=== PATIENT | male | born 1955 | race Caucasian/White ===

== ENCOUNTER 2018-04-02 02:57 | Inpatient (IN) | payer MEDICARE, MEDICAID ==
[~2018-04-02 02:57] MED LIST: D5-0.9%NS 1,000 ML IV SCH
--- NOTE | 2018-04-02 03:17 | ED Physician Chart ---
ED Chief Complaint/HPI - Patient Information Date Seen:: 04/02/18 Time Seen:: 03:16 Chief Complaint:: VOMITING BLOOD History of Present Illness:: THIS IS A 62 YO SEVERE CP WHO IS CHRONICALLY ILL WITH HEART DISEASE,DIABETES AND QUADRAPLEGIC WITH SEVERE MUSCLE WASTING SENT FROM THE NURSING FOR AN EVALUATION AND TREATMENT FOR BLOODY VOMITING SIX TIMES OVER THE LAST 24 HRS. Allergies:: Allergies Allergy/AdvReac Type Severity Reaction Status Date / Time MDX Apricot [Apricot] Allergy Verified 10/03/13 18:18 MDX Bioflavonoid Allergy Verified 10/03/13 18:18 [Bioflavonoid] MDX Blackberry [Blackberry] Allergy Verified 10/03/13 18:18 MDX Broccoli [Broccoli] Allergy Verified 10/03/13 18:18 MDX Alford [Alford] Allergy Verified 10/03/13 18:18 MDX Wharton [Wharton] Allergy Verified 10/03/13 18:18 MDX Grape [Grape] Allergy Verified 10/03/13 18:18 cantaloupe Allergy Uncoded 10/03/13 18:18 currants Allergy Uncoded 10/03/13 18:18 Vitals:: Vital Signs - 8 hr 04/02/18 03:03 Temp 97.0 F HR 115 RR 16 BP 97/73 O2 Sat % 98 Historian:: Medical Records Review:: Nurse's Note Reviewed, Old Chart Reviewed, Transfer documents Reviewed ED Review of Systems - Review of Systems Skin: Other (THIS PATIENT CANNOT GIVE A REVIEW OF SYSTEMS.) ED Past Medical History - Past Medical History Obtainable: Yes Past Medical History: DM, CAD, CHF, CVA/TIA, Dementia Family History: None Social History: Non Smoker, No Alcohol, No Drug Use, Single, Care Facility Surgical History: None Psychiatricy History: Dementia Medication: Reviewed Family Medical History - Family Member Mother History Unknown: Yes ED Physical Exam - Physical Examination General/Constitutional: Awake, Well-developed, well-nourished, Alert, No distress, GCS 15, Non-toxic appearing, Ambulatory Other Gen/Cons comments:: THIS IS A LETHARGIC CACHECTIC, 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 Head: Atraumatic Eyes: Lids, conjuctiva normal, PERRL, EOMI Skin: Nl inspection, No rash, No skin lesions, No ecchymosis, Well hydrated, No lymphadenopathy ENMT: External ears, nose nl, Nasal exam nl, Lips, teeth, gums nl Neck: Nontender, Full ROM w/o pain, No JVD, No nuchal rigidity, No bruit, No mass, No stridor Respiratory: Nl effort/Exclusion, Clear to Auscultation, No Wheeze/Rhonchi/Rales Cardio Vascular: RRR, No murmur, gallop, rubs, NL S1 S2 GI: No tenderness/rebounding/guarding, No organomegaly, No hernia, Normal BS's, Nondistended, No mass/bruits, No McBurney tenderness : No CVA tenderness Extremities: No tenderness or effusion, Full ROM, normal strength in all extremities, No edema, Normal digits & nails Neuro/Psych: Alert/oriented, DTR's symmetric, Normal sensory exam, Normal motor strength, Judgement/insight normal (THE PATIENT HAS PERFOUND INTELLECTUAL DISABILITY.), Mood normal, Normal gait Other Neuro/Psych comments:: THE PATIENT HAS SEVERE 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 Misc: Normal back, No paraspinal tenderness ED Labs/Radiology/EKG Results - Lab Results Results: Abnormal Lab Results 04/02/18 04/02/18 04/02/18 03:58 03:58 03:58 WBC 18.8 H RBC 3.97 L Hgb 11.8 L Hct 35.2 L MCV 88.6 MCH 29.6 MCHC Differential 33.5 RDW 13.9 Plt Count 279 MPV 8.1 Add Manual Diff YES Band Neutrophils % 0 Neutrophils (Manual) 90 H Lymphocytes 7 L Monocytes 3 Sodium 138 Potassium 4.6 Chloride 97 L Carbon Dioxide 32.5 H Anion Gap 13.1 BUN 28 H Creatinine 1.1 Est GFR ( Amer) > 60.0 Est GFR (Non-Af Amer) > 60.0 BUN/Creatinine Ratio 25.5 Glucose 171 H Whole Bld Lactic Acid Calcium 9.7 Total Bilirubin 0.3 AST 17 ALT 16 Alkaline Phosphatase 82 Troponin I 0.02 Total Protein 7.6 Albumin 3.7 L Globulin 3.9 Albumin/Globulin Ratio 1.0 04/02/18 03:58 WBC RBC Hgb Hct MCV MCH MCHC Differential RDW Plt Count MPV Add Manual Diff Band Neutrophils % Neutrophils (Manual) Lymphocytes Monocytes Sodium Potassium Chloride Carbon Dioxide Anion Gap BUN Creatinine Est GFR ( Amer) Est GFR (Non-Af Amer) BUN/Creatinine Ratio Glucose Whole Bld Lactic Acid 2.43 H* Calcium Total Bilirubin AST ALT Alkaline Phosphatase Troponin I Total Protein Albumin Globulin Albumin/Globulin Ratio - EKG Interpretations EKG Time:: 04:37 Rate & Rhythm: RLCE=241, SINUS TACH [place]: LEFT AXIS ED Assessment - Assessment General Assessment: UPPER GI BLEEDING SEPSIS ED Septic Shock - . Is Septic Shock (SBP<90, OR Lactate>4 mmol\L) present?: No - <6hrs of presentation: Vital Signs: Vital Signs - 8 hr 04/02/18 03:03 Temp 97.0 F HR 115 RR 16 BP 97/73 O2 Sat % 98 ED Reassessment (Disposition) - Reassessment Reassessment Condition:: Improved - Diagnosis Diagnosis:: SEPSIS UPPER GI BLEEDING PHIL DELANGE SYNDROME - Patient Disposition Discharge/Transfer:: Acute Care w/in this hosp Accepting Physician:: THIS PATIENT WILL BE CARED FOR BY DR. CRAFT STARTING AT 0700. Admitting Medical Physician:: Sheri Chance Condition at Disposition:: Improved
[2018-04-02 03:43] VITALS: BP 128/67
[2018-04-02] MEDS ORDERED: Sodium Chloride 0.9% 1,000 ML IV ONE ×2 (03:54→06:48)
[2018-04-02 04:21] LABS: HEMATOCRIT 35.2 % (41.0-60); HEMOGLOBIN 11.8 gm/dL (12-16); MEAN CELL VOLUME 88.6 fl (80-99); MEAN CORPUSCULAR HEMOGLOBIN 29.6 pg (26.0-30.0); MEAN CORPUSCULAR HGB CONC 33.5 pg (28.0-36.0); MEAN PLATELET VOLUME 8.1 fl; PLATELET COUNT 279 Th/cmm (150-400); RED BLOOD COUNT 3.97 Mil/cmm (4.30-5.70); RED CELL DISTRIBUTION WIDTH 13.9 % (11.5-20.0)
[2018-04-02 04:24] LABS: WHITE BLOOD COUNT 18.8 Th/cmm (4.8-10.8)
[2018-04-02 04:32] LABS: ALBUMIN 3.7 gm/dL (4.2-5.5); ALKALINE PHOSPHATASE 82 U/L (34-104); ANION GAP 13.1 (7.0-16.0); BILIRUBIN,TOTAL 0.3 mg/dL (0.3-1.0); BUN - UREA NITROGEN 28 mg/dL (7-25); CALCIUM SERUM 9.7 mg/dL (8.6-10.3); CARBON DIOXIDE 32.5 mEq/L (21.0-31.0); CHLORIDE 97 mEq/L (98-107); CREATININE - SERUM 1.1 mg/dL (0.7-1.3); GFR AFRICAN-AMERICAN > 60.0 ml/min (>90); GFR NON AFRICAN-AMERICAN > 60.0 ml/min; GLUCOSE 171 mg/dL (70-105); POTASSIUM SERUM 4.6 mEq/L (3.5-5.1); SGOT 17 U/L (13-39); SGPT/ALT 16 U/L (7-52); SODIUM SERUM 138 mEq/L (136-145); TOTAL PROTEIN,SERUM 7.6 gm/dL (6.0-8.3)
[2018-04-02 05:03] LABS: BAND NEUTROPHILE 0 % (0-10); LYMPHOCYTE 7 % (20-50); MONOCYTE 3 % (2-10); NEUTROPHILS 90 % (40-80)
[2018-04-02] MEDS ORDERED: Pantoprazole 80 MG in Sodium Chloride 0.9% 100 ML IV ONE (07:37)
[2018-04-02] MEDS ORDERED: Pantoprazole 80 MG in Sodium Chloride 0.9% 100 ML IV SCH (07:45)
[2018-04-02 08:26] LABS: URINE SOURCE CLEAN C
[2018-04-02 08:29] LABS: URINE BILIRUBIN NEGATIVE (NEGATIVE); URINE BLOOD NEGATIVE (NEGATIVE); URINE GLUCOSE (UA) NEGATIVE (NEGATIVE); URINE KETONE NEGATIVE (NEGATIVE); URINE LEUKOCYTE ESTERASE SMALL (NEGATIVE); URINE MICROSCOPIC INDICATED? YES; URINE NITRATE NEGATIVE (NEGATIVE); URINE PROTEIN TRACE mg/dL (NEGATIVE); URINE UROBILINOGEN 0.2 E.U./dL (0.2 - 1.0)
[2018-04-02 08:36] LABS: URINE CLARITY TURBID (CLEAR); URINE COLOR YELLOW
[2018-04-02 08:37] LABS: URINE RBC NONE SEEN /hpf (0-5)
[2018-04-02 08:46] LABS: URINE BACTERIA FEW /hpf (NONE SEEN); URINE EPITHELIAL CELLS FEW /lpf (FEW)
[2018-04-02 09:11] LABS: % EOSINOPHILS 0.7 % (0.0-5.0); % LYMPHOCYTES 11.6 % (20.0-50.0); % MONOCYTES 4.7 % (2.0-10.0); BASOPHILE ABSOLUTE 0.2 Th/cumm (0-0.2); EOSINOPHILE ABSOLUTE 0.1 Th/cmm (0.1-0.4); HEMATOCRIT 34.2 % (41.0-60); HEMOGLOBIN 10.9 gm/dL (12-16); LYMPHOCYTE ABSOLUTE 1.8 Th/cmm (1.5-3.0); MEAN CELL VOLUME 88.7 fl (80-99); MEAN CORPUSCULAR HEMOGLOBIN 28.3 pg (26.0-30.0); MEAN CORPUSCULAR HGB CONC 31.9 pg (28.0-36.0); MEAN PLATELET VOLUME 8.8 fl; MONOCYTE ABSOLUTE 0.7 Th/cmm (0.3-1.0); NEUTROPHILE ABSOLUTE 13.1 Th/cmm (1.8-8.0); PLATELET COUNT 235 Th/cmm (150-400); RED BLOOD COUNT 3.86 Mil/cmm (4.30-5.70)
[2018-04-02 09:15] LABS: WHITE BLOOD COUNT 15.9 Th/cmm (4.8-10.8)
--- NOTE | 2018-04-02 09:32 | Diagnostic Imaging Report ---
CHEST X-RAY: AP view INDICATION: Shortness of breath COMPARISON: Chest x-ray 10/09/2013 FINDINGS: Increased interstitial lung markings are noted. No focal consolidation or effusions. Low lung volumes are noted limiting the exam. Cardiomegaly suspected. Left basal density is noted. Degenerative changes spine are noted with scoliosis. IMPRESSION: Increased interstitial lung markings which may be chronic, however, mild congestion cannot be excluded please correlate with clinical findings. Left basal density which may be due to superimposition of soft tissues, however, atelectasis or infiltrate cannot be excluded. Follow-up recommended.
[2018-04-02] MEDS ORDERED: Sodium Chloride 0.9% 1,000 ML IV SCH ×2 (09:45→15:00)
[2018-04-02] MEDS ORDERED: D5-0.45NS 1,000 ML IV SCH (09:54)
[2018-04-02 11:09] LABS: PROTHROMBIN TIME (TEST) 10.1 SECONDS (9.5-11.5)
[2018-04-02] MEDS ORDERED: VTE Chemical Prophylaxis Screen/Admission MC PRN (15:13)
--- NOTE | 2018-04-02 18:31 | History & Physical ---
ADMIT DATE: 04/02/2018 CHIEF COMPLAINT: The patient came in because of hematemesis. HISTORY OF PRESENT ILLNESS: This is a 62-year-old male with past medical history of congenital anomaly (Beryl de Mcclendon syndrome) who was brought in because of hematemesis. A few hours prior to admission, the patient had several episodes of hematemesis. He was subsequently brought to the Emergency Room. His hemoglobin/hematocrit were 11.8/35.2 upon arrival at the ER. He had no further nausea and vomiting since then. Repeat hemoglobin/hematocrit this morning were 10.9/34.2. Stool for occult blood was negative. However, his white count was 18. He had no episodes of diarrhea. PAST MEDICAL HISTORY: 1. Congenital abnormality (Elana de Mcclendon syndrome). 2. Anemia of chronic disease. 3. Type 2 diabetes mellitus. 4. Cardiomegaly. 5. Profound intellectual disability. 6. Essential hypertension. 7. Dyslipidemia. 8. Colonic volvulus. 9. Dysphagia. PAST SURGICAL HISTORY: Status post bowel resection in 1995. CURRENT MEDICATIONS: Currently on ceftriaxone, lorazepam and pantoprazole. ALLERGIES: No known drug allergies. SOCIAL AND FAMILY HISTORY: I was not able to obtain directly from the patient because he remains nonverbal. REVIEW OF SYSTEMS: Again, I was not able to decipher directly from the patient because of the same reason. PHYSICAL EXAMINATION: GENERAL: The patient is awake, not in any form of distress, withdrawn. VITAL SIGNS: His blood pressure is 98/48, pulse 86 and temperature is 97.7 degrees. SKIN: Poor turgor, warm, no rash, no jaundice appreciated. HEENT: Head normocephalic, atraumatic. Eyes: Extraocular muscles intact. Pupils equal, round, reactive to light and accommodates. Anicteric sclerae. [place] conjunctivae. Nose: Midline nasal septum. Mouth: Dry mucosa, adequate dentition. NECK: Supple, no adenopathy, no thyromegaly, no bruits. Trachea palpated in the midline. CHEST AND CARDIOVASCULAR: S1 and S2. No rub, murmur nor gallop appreciated. Point of maximal impulse. Fifth intercostal space, left midclavicular line. No abdominal or femoral bruits appreciated. LUNGS: Equal expansion. No use of accessory muscles. No supraclavicular retractions. Decreased breath sounds. No rhonchi nor wheezes appreciated. ABDOMEN: Flat, soft, positive for bowel sounds.. No bruits either diastolic or systolic. RECTAL: Unable to perform due to his current position. GENITOURINARY: Normal appearing male genitalia. MUSCULOSKELETAL: Unable to assess his extraocular muscles because of his severe contractures. EXTREMITIES: Again, I was not able to assess his extremities, but there is no evidence of any edema, cyanosis or clubbing. He has severe upper and lower extremity contractures. He has a palpable femoral, but unable to fully appreciate popliteal and dorsalis pedis pulses due to his contractures. NEUROLOGIC: Again, due to his congenital anomaly with depressed mentation, I was not able to pursue further my neuro exam. LABORATORY DATA AND STUDIES: Did reveal white count 15.9, hemoglobin 10.9, hematocrit 34.2 and platelets 235. Sodium 138, potassium 4.6, chloride 97, CO2 of 32, BUN 28, creatinine 1.1, lactic acid 1.28, calcium 9.7 and albumin 3.7. IMPRESSION: 1. Upper gastrointestinal bleed in the form of hematemesis, possible esophagitis, erosive gastritis, diuresis, peptic ulcer disease. 2. Leukocytosis with elevated lactic acid, possibly underlying sepsis, etiology unknown at the present time with the possibility of left lower lobe healthcare-acquired pneumonia; however, leukemoid reaction should also be considered. 3. Prerenal azotemia. 4. Congenital anomaly (Beryl de Mcclendon syndrome). 5. Anemia of chronic disease. 6. Type 2 diabetes mellitus. 7. Essential hypertension. 8. Cardiomegaly. 9. Profound intellectual disability. 10. Dyslipidemia. 11. Colonic volvulus, status post bowel resection. 12. Dysphagia. PLAN: 1. GI consult. 2. Agree with clear liquid diet. 3. Type and screen. 4. [place] culture. 5. Continue with PPI. 6. Continue with Rocephin. I have discussed the patient's condition and management with mother, Flora. JOB# [id number]
[2018-04-03 07:12] LABS: % BASOPHILS 1.8 % (0.0-2.0); % EOSINOPHILS 7.9 % (0.0-5.0); % LYMPHOCYTES 25.2 % (20.0-50.0); % MONOCYTES 5.5 % (2.0-10.0); % NEUTROPHILS 59.6 % (40.0-80.0); BASOPHILE ABSOLUTE 0.1 Th/cumm (0-0.2); EOSINOPHILE ABSOLUTE 0.5 Th/cmm (0.1-0.4); HEMATOCRIT 30.8 % (41.0-60); HEMOGLOBIN 10.1 gm/dL (12-16); LYMPHOCYTE ABSOLUTE 1.6 Th/cmm (1.5-3.0); MEAN CORPUSCULAR HEMOGLOBIN 29.3 pg (26.0-30.0); MEAN CORPUSCULAR HGB CONC 32.9 pg (28.0-36.0); MONOCYTE ABSOLUTE 0.3 Th/cmm (0.3-1.0); NEUTROPHILE ABSOLUTE 3.7 Th/cmm (1.8-8.0); PLATELET COUNT 199 Th/cmm (150-400); RED BLOOD COUNT 3.45 Mil/cmm (4.30-5.70)
[2018-04-03 07:24] LABS: ALB/GLOB RATIO 1.1 (1.0-1.8); ALBUMIN 3.2 gm/dL (4.2-5.5); ALKALINE PHOSPHATASE 56 U/L (34-104); ANION GAP 9.5 (7.0-16.0); BILIRUBIN,TOTAL 0.3 mg/dL (0.3-1.0); BUN - UREA NITROGEN 15 mg/dL (7-25); CALCIUM SERUM 8.6 mg/dL (8.6-10.3); CARBON DIOXIDE 25.9 mEq/L (21.0-31.0); CHLORIDE 108 mEq/L (98-107); GFR AFRICAN-AMERICAN > 60.0 ml/min (>90); GFR NON AFRICAN-AMERICAN > 60.0 ml/min; GLUCOSE 137 mg/dL (70-105); MAGNESIUM 1.6 mg/dL (1.9-2.7); POTASSIUM SERUM 4.4 mEq/L (3.5-5.1); SGOT 14 U/L (13-39); SGPT/ALT 12 U/L (7-52); SODIUM SERUM 139 mEq/L (136-145); TOTAL PROTEIN,SERUM 6.2 gm/dL (6.0-8.3)
--- NOTE | 2018-04-03 07:43 | Consultation ---
DATE OF CONSULTATION: 04/02/2018 REASON FOR CONSULTATION: GI bleed. HISTORY OF PRESENT ILLNESS: This consult was obtained through the courtesy of Dr. Chance for this 62-year-old who is mentally challenged, who was transferred from a nursing facility for 6 episodes of coffee-ground emesis according to the detention and the family, the patient is on pureed diet, but he started to vomit yesterday. Since the patient has been here, there were no more episodes of vomiting, but he has been n.p.o. since then. PAST MEDICAL HISTORY: Mentally challenged. PAST SURGICAL HISTORY: Abdominal surgery for volvulus. SOCIAL HISTORY: The patient is a nonsmoker and nonalcoholic, IV drug abuser. FAMILY HISTORY: Unobtainable, noncontributory. ALLERGIES: APRICOT, BLACKBERRY, BROCCOLI, GROVER, CITRUS AND ____ DERIVATIVES. MEDICATIONS: The patient started on Rocephin, Pepcid, lorazepam, Zofran, Protonix. REVIEW OF SYSTEMS: Unobtainable. PHYSICAL EXAMINATION: GENERAL: The patient is awake, nonverbal, nonresponsive. VITAL SIGNS: Blood pressure was 114/51, heart rate 72, respiratory rate 18, temperature is 97.3. HEAD AND NECK: Pupils reactive to light. Extraocular muscles could not be tested. Oral cavity, no lesion. NECK: Supple. CHEST: Good air entry. LUNGS: Clear to auscultation. CARDIOVASCULAR: Regular rate and rhythm. No murmur or gallop. ABDOMEN: Soft with scar previous surgery. Bowel sounds are present. Abdomen was not tender. EXTREMITIES: Lower extremities, no edema. CENTRAL NERVOUS SYSTEM: Other than the disability, the patient is able to move extremities. LABORATORY DATA: Hemoglobin 10.9, hematocrit 34.2. White count 15.9. PT is 10. Chemistry showed lactic acid of 2.43, dropped after admissions and fluid to 1.28. The patient had a chest x-ray, which showed interstitial lung markings, some left basal density. IMPRESSION: A 62-year-old mentally challenged, status post surgery for volvulus, now presenting with coffee-ground emesis. ASSESSMENT AND PLAN: 1. Coffee-ground emesis could be peptic ulcer disease, could be upper GI malignancy, could be erosive esophagitis. RECOMMENDATIONS: 1. PPI. 2. Monitor H and H. 3. Transfuse as needed. 4. EGD in the morning. 5. Further recommendations to follow. 2. Lactic acidosis could be signs of infection. This is per PCP. 3. Other medical problems such as mental challenged as per Dr. Chance. Thank you, Dr. Chance for allowing us to participate in the care of the patient. If you have any further questions, please let me know. JOB# [id number]
[2018-04-03 08:36] LABS: WHITE BLOOD COUNT 6.2 Th/cmm (4.8-10.8)
[2018-04-03] MEDS ORDERED: Propofol 10 mg/mL 20mL Vial **SURGERY USE ONLY IV ONE (11:00)
[2018-04-03] MEDS ORDERED: Lidocaine 2% Gel 5 mL TP ONE (11:00)
[2018-04-03 11:09] LABS: IRON LC 56 ug/dL (38-169); TIBC (LC) 383 ug/dL (250-450); UIBC 327 ug/dL (111-343)
[2018-04-03] MEDS ORDERED: Magnesium Hydroxide (MOM) 30 mL UDC PO PRN (11:15)
[2018-04-03] MEDS: D5-0.9%NS 1,000 ML IV SCH ×2 (13:33)
--- NOTE | 2018-04-03 13:57 | Operative Report ---
DATE OF SURGERY: 04/03/2018 PREOPERATIVE DIAGNOSES: 1. Hematemesis. 2. History of congenital abnormality. 3. History of bowel resection in 1995. 4. Cardiomegaly and profound intellectual disability. POSTOPERATIVE DIAGNOSES: 1. Esophageal ulceration and esophagitis. 2. Mild gastritis. 3. Proximal esophageal stricture. INDICATION: This is a 62-year-old male with a history of congenital anomaly [place] de Mcclendon syndrome, who was brought in because of recurrent bouts of hematemesis from the nursing facility. The patient had hemoglobin that dropped down from 11.8 down to 10.9 and an upper endoscopy was chosen for further evaluation. CONSENT: Informed consent was obtained from the family after explaining the risks, benefits and alternatives to the procedure, which were understood and so stated. SEDATION: Per anesthesia. EGD: While the patient was in the left lateral decubitus position, a GIF-H180 scope was introduced through the patient's mouth and advanced under direct visualization into the esophagus into the stomach and up to the second portion of the duodenum. Here, the scope was withdrawn carefully examining the color, texture, anatomy, and the mucosa of the D1 and D2 portions appeared normal. There was some slight pyloric stenosis that was noted from the pylorus into the duodenal bulb, but the scope was able to pass in and out of this area without any issues. Retroflexion was performed from the gastric body and taking a look at the fundus, did not show any abnormalities. The scope was then straightened forward and looked at the gastric antrum, which had only mild gastritis. Biopsies were taken here to rule out H. pylori. The scope was then brought back to the diaphragmatic pinch which was at 31 cm from the incisors and the GE junction, which was present at 29 cm from the incisors. Just proximal to this, there was some esophageal ulceration, especially one large ulcer that was seen that likely was the cause of bleed. Biopsies were taken around this ulcer edge as well as in the center to rule out CMV or HSV. The scope was then drawn out and the patient tolerated this procedure well. The patient did have a slight narrowing of the proximal esophagus upon entrance of the scope; however, we chose not to dilate this area for patient safety. The scope was withdrawn. The patient tolerated this procedure well. RECOMMENDATIONS: 1. Recommend daily PPI twice a day for this patient. 2. Follow up biopsy results. 3. Monitor for any signs of recurrent hematemesis. 4. Okay to start on clear liquids today and advance as tolerated if patient is swallowing without any difficulties. Thank you for involving us in this patient's care. JOB# [id number]
[2018-04-03] MEDS ORDERED: PROTEIN POWDER PO SCH (14:00)
[2018-04-03] MEDS: Ferrous Sulfate 325 MG TAB PO SCH (16:20)
[2018-04-03 18:33] LABS: INR 1.09 (0.5-1.4)
[2018-04-04] MEDS: D5-0.9%NS 1,000 ML IV SCH ×2 (06:03→20:57)
[2018-04-04 06:37] LABS: % BASOPHILS 0.1 % (0.0-2.0); % EOSINOPHILS 5.9 % (0.0-5.0); % LYMPHOCYTES 16.1 % (20.0-50.0); % MONOCYTES 7.7 % (2.0-10.0); % NEUTROPHILS 70.2 % (40.0-80.0); EOSINOPHILE ABSOLUTE 0.5 Th/cmm (0.1-0.4); HEMATOCRIT 28.8 % (41.0-60); HEMOGLOBIN 9.8 gm/dL (12-16); LYMPHOCYTE ABSOLUTE 1.3 Th/cmm (1.5-3.0); MEAN CELL VOLUME 88.2 fl (80-99); MEAN CORPUSCULAR HEMOGLOBIN 29.8 pg (26.0-30.0); MEAN CORPUSCULAR HGB CONC 33.8 pg (28.0-36.0); MEAN PLATELET VOLUME 7.3 fl; MONOCYTE ABSOLUTE 0.6 Th/cmm (0.3-1.0); NEUTROPHILE ABSOLUTE 5.8 Th/cmm (1.8-8.0); PLATELET COUNT 220 Th/cmm (150-400); RED BLOOD COUNT 3.27 Mil/cmm (4.30-5.70); RED CELL DISTRIBUTION WIDTH 13.7 % (11.5-20.0); WHITE BLOOD COUNT 8.2 Th/cmm (4.8-10.8)
[2018-04-04 07:20] LABS: ALB/GLOB RATIO 1.1 (1.0-1.8); ALBUMIN 3.1 gm/dL (4.2-5.5); ALKALINE PHOSPHATASE 55 U/L (34-104); ANION GAP 11.4 (7.0-16.0); BILIRUBIN,TOTAL 0.4 mg/dL (0.3-1.0); BUN - UREA NITROGEN 10 mg/dL (7-25); CALCIUM SERUM 8.4 mg/dL (8.6-10.3); CARBON DIOXIDE 24.4 mEq/L (21.0-31.0); CHLORIDE 108 mEq/L (98-107); CREATININE - SERUM 0.9 mg/dL (0.7-1.3); GFR AFRICAN-AMERICAN > 60.0 ml/min (>90); GFR NON AFRICAN-AMERICAN > 60.0 ml/min; GLUCOSE 160 mg/dL (70-105); MAGNESIUM 1.4 mg/dL (1.9-2.7); POTASSIUM SERUM 3.8 mEq/L (3.5-5.1); SGOT 15 U/L (13-39); SGPT/ALT 15 U/L (7-52); SODIUM SERUM 140 mEq/L (136-145)
[2018-04-04] MEDS: Ferrous Sulfate 325 MG TAB PO SCH ×2 (08:05→17:36)
[2018-04-04] MEDS ORDERED: Mag Sulfate 2gm/50mL Premix 2 GM/50 ML BAG IV ONE ×2 (09:31→11:32)
--- NOTE | 2018-04-04 11:09 | Pathology Report ---
[id number] Collection date: 04/03/2018 Surgeon: Dr. Jeffrey Bass Specimen Description: 1. Gastric biopsy 2. Esophageal biopsy Gross Description: Part I: Received in formalin are three nava soft tissue fragments ranging from 0.1 - 0.3 cm in greatest dimension. Totally submitted in one cassette labeled A. Gross Description: Part II: Received in formalin are multiple nava soft tissue fragments ranging from 0.1 - 0.2 cm in greatest dimension. Totally submitted in one cassette labeled B. Microscopic Description: Part I: The histologic sections show gastric mucosa with mild chronic inflammation present consisting of increased numbers of lymphocytes and plasma cells. The Giemsa stain shows no evidence for Helicobacter pylori. Diagnosis: Part I: 1. Chronic gastritis, gastric biopsy. 2. The Giemsa stain is negative for Helicobacter pylori. Microscopic Description: Part II: The histologic sections show ulcerated glandular mucosa with acute and chronic inflammation present consisting of increased numbers of neutrophils and lymphocytes. The areas of ulceration show degenerated partially necrotic and hemorrhagic background with associated granulation tissue reaction. There is no evidence of atypia, and no viral inclusions are identified. The PAS stain shows no evidence for fungal organisms, and Alcian blue stain shows no significant abnormalities. Diagnosis: Part II: 1. Esophageal ulcer showing acute and chronic inflammation, esophageal biopsy. 2. There is no evidence for viral inclusion. [facility]# [id number] [facility]ATR[facility] CENTERBienvenido
--- NOTE | 2018-04-04 11:58 | GI Progress Note ---
Subjective - Review of Systems Service Date: 04/04/18 Events since last encounter: No events overnight ; no further hematemesis; tolerating clear liquids Objective - Results Result Diagrams: 04/04/18 05:50 04/04/18 05:50 Recent Labs: Laboratory Last Values WBC 8.2 Th/cmm (4.8-10.8) 04/04/18 05:50 RBC 3.27 Mil/cmm (4.30-5.70) L 04/04/18 05:50 Hgb 9.8 gm/dL (12-16) L 04/04/18 05:50 Hct 28.8 % (41.0-60) L 04/04/18 05:50 MCV 88.2 fl (80-99) 04/04/18 05:50 MCH 29.8 pg (26.0-30.0) 04/04/18 05:50 MCHC Differential 33.8 pg (28.0-36.0) 04/04/18 05:50 RDW 13.7 % (11.5-20.0) 04/04/18 05:50 Plt Count 220 Th/cmm (150-400) 04/04/18 05:50 MPV 7.3 fl 04/04/18 05:50 Add Manual Diff YES 04/02/18 03:58 Neutrophils % 70.2 % (40.0-80.0) 04/04/18 05:50 Band Neutrophils % 0 % (0-10) 04/02/18 03:58 Lymphocytes % 16.1 % (20.0-50.0) L 04/04/18 05:50 Monocytes % 7.7 % (2.0-10.0) 04/04/18 05:50 Eosinophils % 5.9 % (0.0-5.0) H 04/04/18 05:50 Basophils % 0.1 % (0.0-2.0) 04/04/18 05:50 Neutrophils (Manual) 90 % (40-80) H 04/02/18 03:58 Lymphocytes 7 % (20-50) L 04/02/18 03:58 Monocytes 3 % (2-10) 04/02/18 03:58 PT 11.0 SECONDS (9.5-11.5) 04/03/18 07:05 INR 1.09 (0.5-1.4) 04/03/18 07:05 PTT (Actin FS) 24.4 SECONDS (26.0-38.0) L 04/03/18 07:05 Sodium 140 mEq/L (136-145) 04/04/18 05:50 Potassium 3.8 mEq/L (3.5-5.1) 04/04/18 05:50 Chloride 108 mEq/L (98-107) H 04/04/18 05:50 Carbon Dioxide 24.4 mEq/L (21.0-31.0) 04/04/18 05:50 Anion Gap 11.4 (7.0-16.0) 04/04/18 05:50 BUN 10 mg/dL (7-25) 04/04/18 05:50 Creatinine 0.9 mg/dL (0.7-1.3) 04/04/18 05:50 Est GFR ( Amer) > 60.0 ml/min (>90) 04/04/18 05:50 Est GFR (Non-Af Amer) > 60.0 ml/min 04/04/18 05:50 BUN/Creatinine Ratio 11.1 04/04/18 05:50 Glucose 160 mg/dL (70-105) H 04/04/18 05:50 Whole Bld Lactic Acid 1.28 mmol/L (0.60-1.99) 04/02/18 06:05 Calcium 8.4 mg/dL (8.6-10.3) L 04/04/18 05:50 Magnesium 1.4 mg/dL (1.9-2.7) L 04/04/18 05:50 Iron 56 ug/dL (38-169) 04/02/18 03:58 TIBC 383 ug/dL (250-450) 04/02/18 03:58 Iron Saturation 15 % (15-55) 04/02/18 03:58 Unsaturated IBC 327 ug/dL (111-343) 04/02/18 03:58 Total Bilirubin 0.4 mg/dL (0.3-1.0) 04/04/18 05:50 AST 15 U/L (13-39) 04/04/18 05:50 ALT 15 U/L (7-52) 04/04/18 05:50 Alkaline Phosphatase 55 U/L (34-104) 04/04/18 05:50 Troponin I 0.02 ng/mL (0.01-0.05) 04/02/18 03:58 Total Protein 6.0 gm/dL (6.0-8.3) 04/04/18 05:50 Albumin 3.1 gm/dL (4.2-5.5) L 04/04/18 05:50 Globulin 2.9 gm/dL 04/04/18 05:50 Albumin/Globulin Ratio 1.1 (1.0-1.8) 04/04/18 05:50 Urine Source CLEAN C 04/02/18 08:10 Urine Color YELLOW 04/02/18 08:10 Urine Clarity TURBID (CLEAR) 04/02/18 08:10 Urine pH 8.0 (4.6 - 8.0) 04/02/18 08:10 Ur Specific [place] 1.010 (1.005-1.030) 04/02/18 08:10 Urine Protein TRACE mg/dL (NEGATIVE) 04/02/18 08:10 Urine Glucose (UA) NEGATIVE mg/dL (NEGATIVE) 04/02/18 08:10 Urine Ketones NEGATIVE mg/dL (NEGATIVE) 04/02/18 08:10 Urine Blood NEGATIVE (NEGATIVE) 04/02/18 08:10 Urine Nitrate NEGATIVE (NEGATIVE) 04/02/18 08:10 Urine Bilirubin NEGATIVE (NEGATIVE) 04/02/18 08:10 Urine Urobilinogen 0.2 E.U./dL (0.2 - 1.0) 04/02/18 08:10 Ur Leukocyte Esterase SMALL (NEGATIVE) H 04/02/18 08:10 Urine RBC NONE SEEN /hpf (0-5) 04/02/18 08:10 Urine WBC 10-25 /hpf (0-5) H 04/02/18 08:10 Ur Epithelial Cells FEW /lpf (FEW) 04/02/18 08:10 Urine Bacteria FEW /hpf (NONE SEEN) 04/02/18 08:10 Stool Occult Blood NEGATIVE (NEGATIVE) 04/02/18 08:10 Blood Type O POSITIVE 04/02/18 08:00 Antibody Screen NEGATIVE 04/02/18 08:00 - Physical Exam Vitals and I&O: Vital Signs Temp 96.8 F 04/04/18 04:00 Pulse 93 04/04/18 04:00 Resp 18 04/04/18 06:00 BP 163/63 04/04/18 04:00 Pulse Ox 97 04/04/18 04:00 Intake & Output 04/03/18 04/04/18 04/04/18 18:59 06:59 18:59 Intake Total 300 1100 Output Total 3 Balance 300 1097 Weight (lbs) 33.112 kg 33.112 kg Intake: Intake, IV Amount 1000 D5-0.9%Ns 1,000 ml @ 75 1000 mls/hr IV .[id number] [facility] Rx #:[id number] Oral 300 100 Output: Urine 3 Other: # Voids 3 0 # Bowel Movements 0 0 Weight Source Bedscale Bedscale Active Medications: Current Medications Acetaminophen (Tylenol) 650 mg PO Q4HR PRN PRN Reason: Fever >100 Ascorbic Acid (Vitamin C) [address] [facility] Stop: 06/02/18 11:29 Last Admin: 04/04/18 08:05 Dose: 500 mg Bisacodyl (Dulcolax 10 Mg Supp) 10 mg RC Q96HR PRN PRN Reason: Constipation Ferrous Sulfate (Iron) 325 mg PO BID [facility] Stop: 06/02/18 16:59 Last Admin: 04/04/18 08:05 Dose: 325 mg Gemfibrozil (Lopid) [address] [facility] Stop: 06/02/18 20:59 Last Admin: 04/03/18 21:03 Dose: 600 mg Dextrose/Sodium Chloride (D5-0.9%Ns) 1,000 mls @ 75 mls/hr IV .[id number] [facility] Stop: 06/02/18 00:00 Last Admin: 04/04/18 06:03 Dose: 75 mls/hr Magnesium Sulfate (Magnesium Sulfate Premix) 2 gm in 50 mls @ 25 mls/hr IV X1 ONE Stop: 04/04/18 13:31 Lorazepam (Ativan) 1 mg IVP Q4HR PRN PRN Reason: Anxiety Stop: 06/01/18 09:58 Magnesium Hydroxide (Milk Of Magnesia) 30 ml PO Q72HR PRN PRN Reason: Constipation Miscellaneous (Vte Chemical Prophylaxis Screen/ Admission) 1 ea [facility] PRN PRN PRN Reason: PROTOCOL Stop: 06/01/18 15:12 Miscellaneous (Protein Powder) [address] [facility] Stop: 06/02/18 13:59 Mupirocin (Bactroban Oint) 1 appl TP BID [facility] Stop: 04/08/18 16:59 Last Admin: 04/04/18 08:05 Dose: 1 appl Pantoprazole Sodium (Protonix) [address] [facility] Stop: 06/03/18 09:29 Last Admin: 04/04/18 10:47 Dose: 40 mg General: Alert, Cooperative HEENT: Atraumatic, PERRLA, EOMI Neck: Supple Cardiovascular: Regular rate, Normal S1, Normal S2 Abdomen: Bowel sounds - Procedures Procedures: Procedures Procedure Code Date BLOOD TRANSFUSION SERVICE 77677 10/04/13 INCIS W REM OF FORIEGN BODY OR DEV FROM SKIN & SUBCUT TISSUE 86.05 06/16/07 INJECT ANTIBIOTIC 99.21 02/04/08 INSERT PICC CATH 22879 10/04/13 OTHER SKIN & SUBQ I D 86.04 05/11/07 PACKED CELL TRANSFUSION 99.04 10/04/13 REMOVAL TUNNELED CV CATH 77287 06/16/07 THER/PROPH/DIAG INJ, SC/IM 99794 02/04/08 VENOUS CATHETERIZATION NEC 38.93 10/04/13 Assessment/Plan - Problem List Patient Problems: All Active Problems GI bleed (Acute) K92.2 - Assessment Assessment: 1. Esophageal ulcer s/p biopsy 2. ulcerative esophagitis 3. mild gastritis 4. proximal esophageal stricture -Continue with PPI BID PO -Try to advance diet -Supportive care -F/u biopsy results and r/o viral esophagitis although less likely with single ulceration Gi will follow
[2018-04-05 05:44] LABS: % BASOPHILS 0.4 % (0.0-2.0); % EOSINOPHILS 0.4 % (0.0-5.0); % LYMPHOCYTES 16.9 % (20.0-50.0); % MONOCYTES 4.2 % (2.0-10.0); % NEUTROPHILS 78.1 % (40.0-80.0); HEMATOCRIT 27.2 % (41.0-60); HEMOGLOBIN 9.1 gm/dL (12-16); LYMPHOCYTE ABSOLUTE 1.3 Th/cmm (1.5-3.0); MEAN CELL VOLUME 89.3 fl (80-99); MEAN CORPUSCULAR HEMOGLOBIN 29.8 pg (26.0-30.0); MEAN CORPUSCULAR HGB CONC 33.4 pg (28.0-36.0); MONOCYTE ABSOLUTE 0.3 Th/cmm (0.3-1.0); NEUTROPHILE ABSOLUTE 5.9 Th/cmm (1.8-8.0); PLATELET COUNT 187 Th/cmm (150-400); RED BLOOD COUNT 3.05 Mil/cmm (4.30-5.70); RED CELL DISTRIBUTION WIDTH 13.8 % (11.5-20.0); WHITE BLOOD COUNT 7.5 Th/cmm (4.8-10.8)
[2018-04-05 07:05] LABS: ANION GAP 11.2 (7.0-16.0); BUN - UREA NITROGEN 9 mg/dL (7-25); CALCIUM SERUM 8.6 mg/dL (8.6-10.3); CARBON DIOXIDE 24.5 mEq/L (21.0-31.0); CHLORIDE 106 mEq/L (98-107); GFR AFRICAN-AMERICAN > 60.0 ml/min (>90); GFR NON AFRICAN-AMERICAN > 60.0 ml/min; GLUCOSE 184 mg/dL (70-105); MAGNESIUM 2.4 mg/dL (1.9-2.7); POTASSIUM SERUM 3.7 mEq/L (3.5-5.1); SODIUM SERUM 138 mEq/L (136-145)
[2018-04-05] MEDS: Ferrous Sulfate 325 MG TAB PO SCH (08:52)
[2018-04-05] MEDS ORDERED: Pantoprazole 40 mg EC Tab PO SCH ×2 (09:30→16:30)
--- NOTE | 2018-04-05 12:38 | GI Progress Note ---
Subjective - Review of Systems Service Date: 04/05/18 Events since last encounter: No events Objective - Results Result Diagrams: 04/05/18 05:20 04/05/18 06:25 Recent Labs: Laboratory Last Values WBC 7.5 Th/cmm (4.8-10.8) 04/05/18 05:20 RBC 3.05 Mil/cmm (4.30-5.70) L 04/05/18 05:20 Hgb 9.1 gm/dL (12-16) L 04/05/18 05:20 Hct 27.2 % (41.0-60) L 04/05/18 05:20 MCV 89.3 fl (80-99) 04/05/18 05:20 MCH 29.8 pg (26.0-30.0) 04/05/18 05:20 MCHC Differential 33.4 pg (28.0-36.0) 04/05/18 05:20 RDW 13.8 % (11.5-20.0) 04/05/18 05:20 Plt Count 187 Th/cmm (150-400) 04/05/18 05:20 MPV 7.0 fl 04/05/18 05:20 Add Manual Diff YES 04/02/18 03:58 Neutrophils % 78.1 % (40.0-80.0) 04/05/18 05:20 Band Neutrophils % 0 % (0-10) 04/02/18 03:58 Lymphocytes % 16.9 % (20.0-50.0) L 04/05/18 05:20 Monocytes % 4.2 % (2.0-10.0) 04/05/18 05:20 Eosinophils % 0.4 % (0.0-5.0) 04/05/18 05:20 Basophils % 0.4 % (0.0-2.0) 04/05/18 05:20 Neutrophils (Manual) 90 % (40-80) H 04/02/18 03:58 Lymphocytes 7 % (20-50) L 04/02/18 03:58 Monocytes 3 % (2-10) 04/02/18 03:58 PT 11.0 SECONDS (9.5-11.5) 04/03/18 07:05 INR 1.09 (0.5-1.4) 04/03/18 07:05 PTT (Actin FS) 24.4 SECONDS (26.0-38.0) L 04/03/18 07:05 Sodium 138 mEq/L (136-145) 04/05/18 06:25 Potassium 3.7 mEq/L (3.5-5.1) 04/05/18 06:25 Chloride 106 mEq/L (98-107) 04/05/18 06:25 Carbon Dioxide 24.5 mEq/L (21.0-31.0) 04/05/18 06:25 Anion Gap 11.2 (7.0-16.0) 04/05/18 06:25 BUN 9 mg/dL (7-25) 04/05/18 06:25 Creatinine 1.0 mg/dL (0.7-1.3) 04/05/18 06:25 Est GFR ( Amer) > 60.0 ml/min (>90) 04/05/18 06:25 Est GFR (Non-Af Amer) > 60.0 ml/min 04/05/18 06:25 BUN/Creatinine Ratio 9.0 04/05/18 06:25 Glucose 184 mg/dL (70-105) H 04/05/18 06:25 POC Glucose 177 MG/DL (70 - 105) H 04/05/18 06:11 Whole Bld Lactic Acid 1.28 mmol/L (0.60-1.99) 04/02/18 06:05 Calcium 8.6 mg/dL (8.6-10.3) 04/05/18 06:25 Magnesium 2.4 mg/dL (1.9-2.7) 04/05/18 06:25 Iron 56 ug/dL (38-169) 04/02/18 03:58 TIBC 383 ug/dL (250-450) 04/02/18 03:58 Iron Saturation 15 % (15-55) 04/02/18 03:58 Unsaturated IBC 327 ug/dL (111-343) 04/02/18 03:58 Total Bilirubin 0.4 mg/dL (0.3-1.0) 04/04/18 05:50 AST 15 U/L (13-39) 04/04/18 05:50 ALT 15 U/L (7-52) 04/04/18 05:50 Alkaline Phosphatase 55 U/L (34-104) 04/04/18 05:50 Troponin I 0.02 ng/mL (0.01-0.05) 04/02/18 03:58 Total Protein 6.0 gm/dL (6.0-8.3) 04/04/18 05:50 Albumin 3.1 gm/dL (4.2-5.5) L 04/04/18 05:50 Globulin 2.9 gm/dL 04/04/18 05:50 Albumin/Globulin Ratio 1.1 (1.0-1.8) 04/04/18 05:50 Urine Source CLEAN C 04/02/18 08:10 Urine Color YELLOW 04/02/18 08:10 Urine Clarity TURBID (CLEAR) 04/02/18 08:10 Urine pH 8.0 (4.6 - 8.0) 04/02/18 08:10 Ur Specific [place] 1.010 (1.005-1.030) 04/02/18 08:10 Urine Protein TRACE mg/dL (NEGATIVE) 04/02/18 08:10 Urine Glucose (UA) NEGATIVE mg/dL (NEGATIVE) 04/02/18 08:10 Urine Ketones NEGATIVE mg/dL (NEGATIVE) 04/02/18 08:10 Urine Blood NEGATIVE (NEGATIVE) 04/02/18 08:10 Urine Nitrate NEGATIVE (NEGATIVE) 04/02/18 08:10 Urine Bilirubin NEGATIVE (NEGATIVE) 04/02/18 08:10 Urine Urobilinogen 0.2 E.U./dL (0.2 - 1.0) 04/02/18 08:10 Ur Leukocyte Esterase SMALL (NEGATIVE) H 04/02/18 08:10 Urine RBC NONE SEEN /hpf (0-5) 04/02/18 08:10 Urine WBC 10-25 /hpf (0-5) H 04/02/18 08:10 Ur Epithelial Cells FEW /lpf (FEW) 04/02/18 08:10 Urine Bacteria FEW /hpf (NONE SEEN) 04/02/18 08:10 Stool Occult Blood NEGATIVE (NEGATIVE) 04/02/18 08:10 Blood Type O POSITIVE 04/02/18 08:00 Antibody Screen NEGATIVE 04/02/18 08:00 - Physical Exam Vitals and I&O: Vital Signs Temp 96.9 F 04/05/18 11:25 Pulse 74 04/05/18 11:25 Resp 18 04/05/18 11:25 BP 122/79 04/05/18 11:25 Pulse Ox 100 04/05/18 11:25 Intake & Output 04/04/18 04/05/18 04/05/18 18:59 06:59 18:59 Intake Total 1000 100 Balance 1000 100 Weight (lbs) 33.112 kg 35.607 kg 35.38 kg Intake: Intake, IV Amount 1000 D5-0.9%Ns 1,000 ml @ 75 1000 mls/hr IV .[id number] [facility] Rx #:[id number] Oral 100 Other: # Voids 3 # Bowel Movements 0 Weight Source Bedscale Bedscale Bedscale Active Medications: Current Medications Acetaminophen (Tylenol) 650 mg PO Q4HR PRN PRN Reason: Fever >100 Ascorbic Acid (Vitamin C) 500 mg PO DAILY [facility] Stop: 06/02/18 11:29 Last Admin: 04/05/18 08:52 Dose: 500 mg Bisacodyl (Dulcolax 10 Mg Supp) 10 mg RC Q96HR PRN PRN Reason: Constipation Ferrous Sulfate (Iron) 325 mg PO BID [facility] Stop: 06/02/18 16:59 Last Admin: 04/05/18 08:52 Dose: 325 mg Gemfibrozil (Lopid) 600 mg PO HS [facility] Stop: 06/02/18 20:59 Last Admin: 04/04/18 20:51 Dose: 600 mg Lorazepam (Ativan) 1 mg IVP Q4H PRN PRN Reason: Anxiety Stop: 06/01/18 09:58 Magnesium Hydroxide (Milk Of Magnesia) 30 ml PO Q72HR PRN PRN Reason: Constipation Miscellaneous (Vte Chemical Prophylaxis Screen/ Admission) 1 ea [facility] PRN PRN PRN Reason: PROTOCOL Stop: 06/01/18 15:12 Mupirocin (Bactroban Oint) 1 appl TP BID [facility] Stop: 04/08/18 16:59 Last Admin: 04/05/18 08:52 Dose: 1 appl Pantoprazole Sodium (Protonix) 40 mg PO BIDAC [facility] Stop: 06/04/18 16:29 General: Alert, Cooperative HEENT: Atraumatic, PERRLA, EOMI Neck: Supple Cardiovascular: Regular rate, Normal S1, Normal S2 Abdomen: Bowel sounds - Procedures Procedures: Procedures Procedure Code Date BLOOD TRANSFUSION SERVICE 83899 10/04/13 EXCISION OF MIDDLE ESOPHAGUS, ENDO, DIAGN [id number] 04/02/18 INCIS W REM OF FORIEGN BODY OR DEV FROM SKIN & SUBCUT TISSUE 86.05 06/16/07 INJECT ANTIBIOTIC 99.21 02/04/08 INSERT PICC CATH 33361 10/04/13 OTHER SKIN & SUBQ I D 86.04 05/11/07 PACKED CELL TRANSFUSION 99.04 10/04/13 REMOVAL TUNNELED CV CATH 90339 06/16/07 THER/PROPH/DIAG INJ, SC/IM 19690 02/04/08 VENOUS CATHETERIZATION NEC 38.93 10/04/13 Assessment/Plan - Problem List Patient Problems: All Active Problems GI bleed (Acute) K92.2 - Assessment Assessment: 1. Esophageal ulcer s/p biopsy 2. ulcerative esophagitis 3. mild gastritis 4. proximal esophageal stricture -Continue with PPI BID PO -Continue diet -Supportive care -F/u biopsy results and r/o viral esophagitis although less likely with single ulceration Gi will follow
--- NOTE | 2018-04-05 21:18 | Discharge Summary ---
DATE OF DISCHARGE: 04/05/2018 ADMITTING DIAGNOSES: 1. Upper gastrointestinal bleed/hematemesis. 2. Leukocytosis. 3. Elevated lactic acid level, rule out sepsis. 4. Prerenal azotemia. 5. Anemia. SECONDARY DIAGNOSES: Includes [place] syndrome, anemia of chronic disease, type 2 diabetes, cardiomegaly, profound intellectual disability, essential hypertension, dyslipidemia, colonic volvulus, and dysphagia. DISCHARGE DIAGNOSES: 1. Status post upper gastrointestinal bleed-clinically resolved. 2. Esophageal ulcer/esophagitis. 3. Proximal esophageal stricture. 4. Mild gastritis. 5. Prerenal azotemia, resolved. 6. Acute on chronic anemia - improved. 7. Elevated lactic acid level - resolved. 8. MRSA+ screen-on Bactroban CONSULTANTS: Dr. Bass--GI. MAJOR PROCEDURES: There was an EGD done on 04/03/2018 showin. Esophageal ulceration and esophagitis. 2. Mild gastritis. 3. Proximal esophageal stricture. BRIEF HOSPITAL COURSE: A 62-year-old gentleman, who resides at [facility] with above-mentioned diagnosis, brought into the ED secondary to hematemesis. The patient apparently had 4 episodes of hematemesis noted at the detention and was transferred to the ER where his H and H was noted to be 11.8/35.2. He was admitted to telemetry [facility] for further management and care. Other pertinent findings included a white count of 18,000 and a lactic acid of 2.43. The patient was placed on D5 half NS, made n.p.o., and was given Protonix IV. He vital signs remained stable throughout his hospital stay and by 04/03, his white count had improved to a level of 6.2 and his H and H had remained stable at 10/30. Repeat lactic acid level was normal at 1.28. Clinically speaking, he had no more nausea, vomiting/hematemesis. He was seen by GI and underwent above-mentioned procedures without any complications. Post-procedure, he was started on a clear liquid diet and advance to a soft pureed diet, which he is currently tolerating. His latest H and H is / and he has no evidence of further bleeding. MEDICATIONS ON DISCHARGE: Protonix 40 mg p.o. b.i.d. times 14 days and daily, Desitin b.i.d., fleet enema q. 96 hours p.r.n. for severe constipation, multivitamins q. day, Pepcid 20 mg at bedtime, Dulcolax 10 mg q. 96 hours, iron sulfate 325 mg b.i.d., Lopid 600 mg at bedtime, milk of magnesia 30 mL every 72 hours, Tylenol 650 mg q. 4 p.r.n. for pain, and vitamin C 500 mg q. day, Bactroban oinment-apply to nares bid x 7 days DISPOSITION: The patient was transferred to [facility] under the care of Dr. Drake. JOB# [id number] [facility]
== END 2018-04-05 15:33 | DRG 871 ==
LOC: ER 02:57 → TELE 08:00
PROVIDERS: ADMIT Internal Medicine; ATTEND Internal Medicine
PROC: 0DB58ZX Excision of Esophagus, Via Natural or Artificial Opening Endoscopic, Diagnostic (ICD-10-PCS; principal; 2018-04-03)
PROC: 0DB68ZX Excision of Stomach, Via Natural or Artificial Opening Endoscopic, Diagnostic (ICD-10-PCS; 2018-04-03)
DX: A41.9 Sepsis, unspecified organism (principal); G82.50 Quadriplegia, unspecified; K22.11 Ulcer of esophagus with bleeding; K29.71 Gastritis, unspecified, with bleeding; Q87.1 Congenital malformation syndromes predominantly associated with short stature; R64 Cachexia; Z68.1 Body mass index [BMI] 19.9 or less, adult; F73 Profound intellectual disabilities; K31.1 Adult hypertrophic pyloric stenosis; D63.8 Anemia in other chronic diseases classified elsewhere; E11.9 Type 2 diabetes mellitus without complications; E78.5 Hyperlipidemia, unspecified; R13.10 Dysphagia, unspecified; K22.2 Esophageal obstruction; I11.0 Hypertensive heart disease with heart failure; I50.9 Heart failure, unspecified; F03.90 Unspecified dementia, unspecified severity, without behavioral disturbance, psychotic disturbance, mood disturbance, and anxiety; I25.10 Atherosclerotic heart disease of native coronary artery without angina pectoris; Z86.73 Personal history of transient ischemic attack (TIA), and cerebral infarction without residual deficits; Z91.018 Allergy to other foods
CPT/HCPCS: 36415-UA; 71045-TC; 80048-TC; 80053-TC; 81001-TC; 82270-TC; 82948-90; 83036-90; 83540-90; 83550-90; 83605; 83735-TC; 84484-TC; 85007-TC; 85025-TC; 85610-TC; 85730-TC; 86850-TC; 86900-TC; 86901-TC; 87086-90; 93005; 96375; C9113; J0696; J2405; J2704; J3475; J3490; J7030; J7042; Z7610